=== PATIENT | female | born 1985 | race Asian ===

== ENCOUNTER 2020-11-26 18:05 | Inpatient (IN) ==
[~2020-11-26 18:05] MED LIST: Dinoprostone 10 MG VAG.SUPP VAGINAL ONE
[2020-11-26 19:54] LABS: Urine Benzodiazepine Screen None Detected (None Detect); Urine Cannabinoids Screen None Detected (None Detect); Urine Opiates Screen None Detected (None Detect)
[2020-11-27] MEDS ORDERED: Lactated Ringers 1000 ml BAG 1,000 ML IV ONE (09:17)
[2020-11-27] MEDS ORDERED: Buffered Lidocaine 1% SYRIN 1 ml INTRADERM ONE (09:17)
[2020-11-27] MEDS ORDERED: Dinoprostone 10 MG VAG.SUPP VAGINAL ONE (21:29)
[2020-11-28] MEDS ORDERED: Oxytocin in LR 20 UNITS/1,000 ML BAG IVPB SCH (09:00)
[2020-11-28] MEDS: Lactated Ringers 1000 ml BAG 1,000 ML IV SCH ×3 (09:21→20:27)
[2020-11-28 09:28] LABS: ABS Basophils 0.1 10^3/ul (0-0.2); ABS Eosinophils 0.1 10^3/ul (0-0.6); ABS Lymphocytes 1.9 10^3/ul (1.0-4.8); ABS Monocytes 0.7 10^3/ul (0-0.8); ABS Neutrophils 9.9 10^3/ul (1.5-7.7); Eosinophil % 1.2 %; Hematocrit 36 % (35-47); Mean Corpuscular HGB Conc 36 g/dL (31-36); Mean Corpuscular Hemoglobin 34 pg (27-31); Mean Corpuscular Volume 94 fL (80-97); Platelet Count 223 10^3/uL (150-450); Red Blood Count 3.84 10^6 /uL (3.70-4.87); Red Cell Distribution Width 14 % (10-15); White Blood Count 12.7 10^3/uL (3.5-10.8)
[2020-11-28] MEDS ORDERED: Penicillin G Potassium IV 5,000,000 UNITS in NS 0.9% 100 ml BAG 100 ML IVPB ONE (13:15)
[2020-11-28] MEDS: Penicillin G Potassium IV 3,000,000 UNITS in NS 0.9% 100 ml BAG 100 ML IVPB SCH ×2 (17:12→21:08)
[2020-11-28] MEDS ORDERED: OBEPIDURAL 250 ML EPIDURAL ONE (23:18)
[2020-11-29] MEDS ORDERED: Phenylephrine 40 mcg/mL 10mL (400mcg) SYRINGE IV PUSH PRN (00:38)
[2020-11-29] MEDS ORDERED: Sodium Citrate/Citric Acid LIQ 15 ML UDC PO PRN (00:38)
[2020-11-29] MEDS: Lactated Ringers 1000 ml BAG 1,000 ML IV SCH ×4 (00:43→20:53)
[2020-11-29] MEDS: Penicillin G Potassium IV 3,000,000 UNITS in NS 0.9% 100 ml BAG 100 ML IVPB SCH ×6 (01:05→21:05)
[2020-11-29] MEDS: OBEPIDURAL 250 ML EPIDURAL SCH (09:53)
[2020-11-29] MEDS ORDERED: Calcium Carb (TUMS) 500 mg CHEW TAB PO ONE (13:29)
[2020-11-29] MEDS: Oxytocin in LR 20 UNITS/1,000 ML BAG IVPB SCH (14:46)
[2020-11-30] MEDS ORDERED: Dibucaine 1% OINT 28.35 GM TUBE PR PRN (01:36)
[2020-11-30] MEDS ORDERED: Witch Hazel PAD JAR TOPICAL PRN (01:36)
[2020-11-30] MEDS ORDERED: Carboprost Tromethamine 250 mcg 1 ml VIAL ONE (01:49)
[2020-11-30] MEDS ORDERED: Methylergonovine 0.2 mg AMPULE 1 ml AMP IM ONE (01:50)
[2020-11-30] MEDS ORDERED: Lactated Ringers 1000 ml BAG 1,000 ML IV SCH (02:00)
[2020-11-30] MEDS ORDERED: Oxytocin in LR 20 UNITS/1,000 ML BAG IVPB SCH (02:00)
[2020-11-30] MEDS: Oxytocin in LR 20 UNITS/1,000 ML BAG IVPB SCH (02:19)
[2020-11-30] MEDS ORDERED: Lidocaine 1% VIAL 10 MG/ML VIAL ONE (05:06)
[2020-12-01 08:24] LABS: ABS Eosinophils 0.2 10^3/ul (0-0.6); ABS Monocytes 0.6 10^3/ul (0-0.8); ABS Neutrophils 10.6 10^3/ul (1.5-7.7); Eosinophil % 1.8 %; Hematocrit 24 % (35-47); Hemoglobin 8.8 g/dL (12.0-16.0); Lymphocyte % 15.2 %; Mean Corpuscular HGB Conc 36 g/dL (31-36); Mean Corpuscular Hemoglobin 34 pg (27-31); Mean Corpuscular Volume 94 fL (80-97); Mean Platelet Volume 8.1 fL (7.4-10.4); Platelet Count 188 10^3/uL (150-450); Red Cell Distribution Width 14 % (10-15); White Blood Count 13.5 10^3/uL (3.5-10.8)
[2020-12-01] MEDS ORDERED: Iron Sucrose 200 MG in NS 0.9% 100 ml BAG 100 ML IVPB ONE (12:45)
[2020-12-02] MEDS: OBEPIDURAL 250 ML EPIDURAL SCH (07:19)
[2020-12-02] MEDS: Penicillin G Potassium IV 3,000,000 UNITS in NS 0.9% 100 ml BAG 100 ML IVPB SCH (07:19)
[2020-12-02 07:35] VITALS: BP 116/59
== END 2020-12-02 12:06 | disposition home or self-care (01) | DRG 806 ==
LOC: MCHOBOUT 18:05 → MCHOB 11-27 09:22
PROVIDERS: ADMIT Midwife; ATTEND Obstetrics & Gynecology